=== PATIENT | male | born 2000 | race Hispanic/Latino ===

== ENCOUNTER 2023-10-26 03:41 | Emergency (ER) | payer SELFPAY ==
--- NOTE | ~2023-10-26 | US_ITS ---
Testicular ultrasound with doppler. Indication: Torsion. Technique: Real-time sonography the scrotum was performed. Color flow Doppler and Doppler spectral an alysis were performed. Findings: There is no evidence of an intratesticular mass. The right testis measures 4.0 x 2.0 x 3.4 cm and the left 4.1 x 2.6 x 3.2 cm. There is normal color flow with arterial and venous waveforms in the right testis. Right testis is homogeneous. Left testis is diffusely heterogeneous, with no color -flow apparent. Left epididymis is also enlarged, heterogeneous, and without apparent internal vascul arity on color imaging. Right epididymis unremarkable. Small left hydrocele present. Impression: Findings highly suspicious for left testicular torsion, with probable involvement of the epididymis a s well. Reviewed, dictated and finalized at [facility]. [employer] Impression: Findings highly suspicious for left testicular torsion, with probable involveme nt of the epididymis as well.
[2023-10-26 03:37] VITALS: BP 149/83; PULSE 78; RESP 20; TEMP 37.4; O2SAT 98
[2023-10-26 03:40] VITALS: BP 149/83; PULSE 80; O2SAT 98
--- NOTE | 2023-10-26 03:56 | ED.GENADULT ---
HPI - General Adult General Chief complaint: Abdominal Pain Stated complaint: R/O TESTICULAR TORSION FROM [facility] History of Present Illness HPI narrative: 23-year-old Irish-speaking male sent from [place] to rule out torsion. Patient is complaining of left lower abdominal pain and left testicle pain started at 9:00 p.m. last night. It is a sharp pain that radiates from his stomach to his testicle. Nine out 10 intensity and getting slightly better. He says he has had pain like this in the past but is resolved on its own he has not set sought medical attention. No exacerbating or alleviating factors. Patient denies dysuria, penile discharge hematuria or concerns for STDs. He has had nausea and vomiting. No fever chills chest pain difficulty breathing. Related Data Allergies Allergy/AdvReac Type Severity Reaction Status Date / Time No Known Allergies Allergy Verified 10/26/23 03:48 Exam Narrative: APPEARANCE: No apparent distress. Head: atraumatic. EYES: EOMI, NOSE: Atraumatic NECK: Trachea midline RESPIRATORY: No increased rate of breathing CARDIOVASCULAR: RRR, ABDOMINAL: Abdomen is soft nontender with no guarding or rebound, no CVA tenderness Genital exam: Normal external genitalia, Left testicle is firm without significant tenderness, cremasteric indeterminate. Normal lie of the testicles. MUSCULOSKELETAl: No obvious deformities NEURO: Alert. Moving 4/4 extremities SKIN:: Warm, dry. Normal color PSYCHIATRIC: Normal affect Course Vital Signs Vital signs: Vital Signs Temperature 99.4 F 10/26/23 03:37 Pulse Rate 78 10/26/23 03:37 Respiratory Rate 20 10/26/23 03:37 Blood Pressure 149/83 H 10/26/23 03:37 Pulse Oximetry 98 10/26/23 03:37 Oxygen Delivery Room Air 10/26/23 03:37 Temperature 99.4 F 10/26/23 03:37 Pulse Rate 78 10/26/23 03:37 Respiratory Rate 20 10/26/23 03:37 Blood Pressure 149/83 H 10/26/23 03:37 Pulse Oximetry 98 10/26/23 03:37 Oxygen Delivery Room Air 10/26/23 03:37 Medical Decision Making [facility] Narrative Medical decision making narrative: -Course: 23-year-old male sent from outside hospital for rule out testicular torsion. Physical exam was unremarkable outside of a swollen epididymitis. There is not significant tenderness, swelling or abnormal lie. US did not show any flow in the left testicle. Urology was consulted. Urology (Dr. Ramirez and Dr. Corbett) evaluated the patient's testicle at bedside and have no concern for testicle torsion. They would like the patient treated for epididymitis and will see them Thursday in the office. -DDX includes but is not limited to: Testicular torsion, testicular cancer, epididymitis, varicocele -Social determinants of health: works as a clerical clerk -Independent interpretation of studies: white count 17. Urine showed 11-20 white blood cells. US showed no flow to the left testicle. -Discussion of Management/Consultants: Dr. Corbett and Dr. Ramirez -urology -Interventions: 100 ceftriaxone, 5 mg levofloxacin 0.5 mg Dilaudid, 15 mg Toradol -Shared decision making / Disposition: discharge with close Urology follow-up -RX Motrin, Tylenol, oxycodone, levofloxin Vital Signs Vital Signs: Vital Signs Temperature 99.4 F 10/26/23 03:37 Pulse Rate 78 10/26/23 03:37 Respiratory Rate 20 10/26/23 03:37 Blood Pressure 149/83 H 10/26/23 03:37 Pulse Oximetry 98 10/26/23 03:37 Oxygen Delivery Room Air 10/26/23 03:37 Temperature 99.4 F 10/26/23 03:37 Pulse Rate 78 10/26/23 03:37 Respiratory Rate 20 10/26/23 03:37 Blood Pressure 149/83 H 10/26/23 03:37 Pulse Oximetry 98 10/26/23 03:37 Oxygen Delivery Room Air 10/26/23 03:37 Lab Data 10/26/23 04:20 10/26/23 04:20 Labs: Lab Results 10/26/23 Range/Units 04:20 WBC 17.4 H (4.5-10.0) K/mm3 RBC 4.81 (4.2-5.4) M/mm3 Hgb 14.6 (12.0-15.0) g/dL Hct 43.0 (37.0-47.0) % MCV
[2023-10-26 04:00] VITALS: BP 142/73; PULSE 80; O2SAT 98
[2023-10-26 04:30] LABS: Basophils Absolute Auto 0.1 K/mm3 (0.0-0.1); Basophils Percent Auto 0.3 % (0.2-1.2); Eosinophils Absolute Auto 0.2 K/mm3 (0-0.3); Eosinophils Percent Auto 1.2 % (0-4.4); Hemoglobin 14.6 g/dL (12.0-15.0); Immature Granulocyte Percent A 0.6 % (0-0.5); Lymphocytes Absolute Auto 1.17 K/mm3 (0.9-3.2); Lymphocytes Percent Auto 6.7 % (18.3-44.2); Mean Corpuscular Hemoglobin 30.4 pg (26-34); Mean Corpuscular Volume 89.4 fl (80-100); Mean Platelet Volume 9.8 fl (7.4-10.4); Monocytes Absolute Auto 0.4 K/mm3 (0.1-0.6); Monocytes Percent Auto 2.1 % (2.6-8.5); Neutrophils Absolute Auto 15.5 K/mm3 (1.3-6.7); Neutrophils Percent Auto 89.1 % (45.5-73.1); Platelet Count Result 275 k/mm3 (150-375); Red Blood Count 4.81 M/mm3 (4.2-5.4); Red Cell Distribution Width 11.9 % (11.5-14.5); White Blood Count 17.4 K/mm3 (4.5-10.0)
[2023-10-26 04:40] LABS: INR 1.1; Prothrombin Time 14.5 Seconds (11.1-14.7)
[2023-10-26 04:41] LABS: Partial Thromboplastin Time 30.4 SECONDS (22.3-36.8)
[2023-10-26 04:42] LABS: Anion Gap 9 mmol/L (8-16); Blood Urea Nitrogen 17 mg/dL (7-17); Carbon Dioxide 25 mmol/L (22-30); Chloride 105 mmol/L (98-107); Estimated CRCL calculation 87 ml/min; Estimated Glomerular Filt Rate > 60; Glucose 130 mg/dL (65-110); Potassium 3.7 mmol/L (3.4-5.0); Sodium 139 mmol/L (137-145)
--- NOTE | 2023-10-26 04:42 | PC.NURSE ---
this rn collected a urine sample and sent urine to lab for specimen collection. lab notified this rn, urine amount was insufficient, however they could run the UA but could not run the STI tests. this rn made pt aware another urine sample would be needed.
[2023-10-26 04:44] LABS: Amorphous Sediment Urine Present; Appearance Urine Turbid (Clear); Bacteria Urine None Seen /hpf; Bilirubin Urine Negative (Negative); Blood Urine Negative (Negative); Color Urine Dark Yellow (Yellow); Glucose Urine UA Negative (Negative); Ketones Urine 3+ mg/dL (Negative); Leukocyte Esterase Ur Negative LEU/UL (Negative); Need Manual Microscopic Reviewed; Nitrate Urine Negative (Negative); Protein Urine Trace mg/dL (Negative); RBC Urine 0-2 /hpf (0-2); Squamous Epithelial Cell Urine Occasional /hpf (Few); pH Urine 5.5 (5.0-9.0)
[2023-10-26 04:54] LABS: Add Urine Microscopic? YES
--- NOTE | 2023-10-26 05:20 | PC.NURSE ---
this rn called lab and spoke with Doris, to add a lab to pt blood work.
[2023-10-26 05:45] VITALS: BP 141/72; PULSE 60; O2SAT 100
--- NOTE | 2023-10-26 05:56 | PC.NURSE ---
pt meds that were given prior to arrival from [place] were: pt was given 50 mcg of fentanyl at 2359 on 10/25 pt was given zofran 4mg ivp at 235 on 10/25 pt was given NS 0.9% IV 1000ml at 9 on 10/25 pt was given toradol ivp 30 mg at 0150 on 10/26
[2023-10-26 06:03] LABS: SPREG INTERNAL CONTROL Positive; Serum Qual hCG Negative
--- NOTE | 2023-10-26 06:05 | WPDURCON ---
Assessment and Plan Assessment and plan (1) Epididymitis: Code(s): N45.1 - Epididymitis Status: Acute Assessment and Plan: Although scrotal ultrasound suggests possible diminished flow to the left testicle, his examination of the testicle seems to be perfectly normal and not consistent with a torsion. Instead, exam and presentation with leukocytosis and pyuria is consistent with left epididymitis or, less likely, torsion an appendix testicle /epididymis. Conservative treatment with rest, analgesics and pain medications seems appropriate. There did not appear to be any indication for surgical exploration at this time. Patient was examined by both myself and Dr. Corbett and we agree with the above findings Urology Consult Note HPI Date Seen: 10/26/23 Primary Care Provider: UNKNOWN,DOCTOR Consult Narrative Narrative: Tomas Trinidad is a 23 year old male who speaks no British, transferred from the emergency department in [place] where he presented last night around 9:00 p.m. with left testicular pain. Story was presented to me secondhand after the ED at [facility] originally contacted my partner Dr. Corbett. Reportedly this pain arose acutely without identifiable injury or strain. Evaluation in the ER at [place] was incomplete is a had no access to urological consultation for scrotal ultrasonography. Upon presentation in [facility] scrotal ultrasound showed diminished blood flow to the left testicle suspicious for possible testicular torsion. Examination both myself and Dr. Corbett, however, shows minimal discomfort with examination, a testicle with normal long-axis orientation well within the dependent portion of the left hemiscrotum. There is swelling, induration and tenderness in the head of the left epididymis. Review of Systems Review of Systems: All systems reviewed & are unremarkable except as noted in HPI and below Meds Home Medications and Allergies Home Medications Medication Instructions Recorded Confirmed Type acetaminophen 500 mg tablet 1,000 mg PO TID PRN maggie 7 days #42 10/26/23 Rx tabs ibuprofen 800 mg tablet 800 mg PO TID PRN pain 7 days #21 10/26/23 Rx tabs levofloxacin 500 mg tablet 500 mg PO DAILY #10 tabs 10/26/23 Rx ondansetron 4 mg disintegrating 4 mg PO Q8H PRN nausea and 10/26/23 Rx tablet vomiting #30 tabs oxycodone 5 mg tablet 5 mg PO Q4H PRN pain #14 tabs 10/26/23 Rx Allergies Allergy/AdvReac Type Severity Reaction Status Date / Time No Known Allergies Allergy Verified 10/26/23 03:48 Vital Signs Vital Signs - 24 hr 10/26/23 03:37 10/26/23 03:40 10/26/23 04:00 Temperature 99.4 F Pulse Rate 78 80 80 Respiratory Rate 20 Blood Pressure 149/83 H 149/83 H 142/73 H Pulse Oximetry 98 98 98 Oxygen Delivery Room Air 10/26/23 05:45 Temperature Pulse Rate 60 Respiratory Rate Blood Pressure 141/72 H Pulse Oximetry 100 Oxygen Delivery Exam Const: General: no acute distress Resp: Effort & Inspection: normal respiratory effort GI: Inspection: non-distended GI Palp: No abdominal tenderness and No Guarding due to palpation present (GI) Auscultation: normal bowel sounds : Testes: testicular lie normal, epididymal induration, epididymal tenderness, no testicular tenderness and normal testicular lie Other: Right testicle is palpably normal Left testicle with normal long-axis orientation and positioned in the dependent portion of the left hemiscrotum. There is notable 1-2 cm swelling above the left testicle consistent with either epididymal swelling or possibly torsion of an appendix testicle/epididymis. this examination is not consistent with testicular torsion Results Labs 10/26/23 04:20 10/26/23 04:20 Labs: Short CBC 10/26/23 Range/Units 04:20 WBC 17.4 H (4.5-10.0) K/mm3 Hgb 14.6 (12.0-15.0) g/dL Hct 43.0 (37.0-47.0) % Plt Count 275 (150
[2023-10-26] MEDS: levoFLOXacin 500 MG TABLET PO (06:30)
[2023-10-26] MEDS: WATER, STERILE FOR INJECTION 10 ML VIAL XX (06:31)
[2023-10-26] MEDS: cefTRIAXone 1 GM VIAL 0.5 GM IM (06:31)
[2023-10-26] MEDS: HYDROmorphone HCL INJ (*CRX) 1 MG/ML SYR 0.5 MG IV PUSH (06:31)
[2023-10-26] MEDS: KETOROLAC 15 MG/ML VIAL (*BKC) IV PUSH (06:31)
== END 2023-10-26 06:45 | disposition home or self-care (01) ==
PROVIDERS: Emergency Provider Emergency Medicine
DX: N45.1 Epididymitis (principal)
CPT/HCPCS: 36415; 76870; 80048; 81001; 84703; 85025; 85610; 85730; 87086; 93976; 96372; 96374; 96375; 99284; A9270; J0696; J1170; J1885